=== PATIENT | male | born 2000 | race Caucasian/White ===

== ENCOUNTER 2025-11-06 11:12 | Emergency (ER) | payer MEDICAID ==
[~2025-11-06] VITALS: Ht 175.3 cm; Wt 143.0 kg
[2025-11-06 11:16] VITALS: O2SAT 99
[2025-11-06] MEDS ORDERED: IBUP-2030 MT (12:19)
[2025-11-06] MEDS: CYCLOBENZAPRINE 10MG TABLET PO ONE (12:26)
[2025-11-06] MEDS: KETOROLAC 30MG/ML VIAL IM ONE (12:26)
[2025-11-06 12:36] VITALS: BP 152/90; PULSE 97; RESP 16; TEMP 36.7; O2SAT 99
== END 2025-11-06 14:37 | disposition home or self-care (01) ==
LOC: ER 11:12
DX: M25.571 Pain in right ankle and joints of right foot (principal); M25.572 Pain in left ankle and joints of left foot; I10 Essential (primary) hypertension
CPT/HCPCS: 99283; 73600; 96372; J1885